=== PATIENT | male | born 1985 | race Caucasian/White ===

== ENCOUNTER 2016-11-28 13:47 | Emergency (ER) | payer MEDICAID ==
[~2016-11-28 13:47] MED LIST: Pantoprazole 40 MG Tab.CR ONE
--- NOTE | 2016-11-28 14:20 | EDM.PDOC ---
ED HPI GENERAL MEDICAL PROBLEM - General Chief Complaint: General Stated Complaint: ABDOMINAL PAIN Time Seen by Provider: 11/28/16 13:55 Source of Information: Reports: Patient History Limitations: Reports: No Limitations - History of Present Illness INITIAL COMMENTS - FREE TEXT/NARRATIVE: Pt claims that he ate turkey sandwich last night and went to bed, he woke up with vague abdominal pain in the epigastric region of the abdomen and slightly to the right. Pain is more of cramps which come and go, did get sharp and felt nauseous. Rates pain at worse around 6/10. No vomiting. No fever or chills. No abdominal bloating. He has been belching and burping all day today. Has had one slightly loose stools. Otherwise he feels fine. Onset: Today Onset Date: 11/28/16 Onset Time: 07:00 Location: Reports: Abdomen Quality: Reports: Ache Severity: Mild Associated Symptoms: Denies: Confusion, Cough, Diaphoresis, Fever/Chills, Headaches, Loss of Appetite, Nausea/Vomiting, Rash, Shortness of Breath, Weakness - Related Data Allergies Allergy/AdvReac Type Severity Reaction Status Date / Time Penicillins Allergy Hives Verified 11/28/16 14:07 Sulfa (Sulfonamide Allergy Hives Verified 11/28/16 14:07 Antibiotics) Home Meds: Home Meds NK [No Known Home Meds] 11/28/16 [History] ED ROS GENERAL - Review of Systems Review Of Systems: See Below Constitutional: Denies: Fever, Chills HEENT: Denies: Rhinitis, Sinus Problem, Throat Pain, Throat Swelling Respiratory: Denies: Shortness of Breath, Cough, Sputum Cardiovascular: Denies: Chest Pain, Lightheadedness GI/Abdominal: Reports: Abdominal Pain, Diarrhea, Flatus, Nausea. Denies: Black Stool, Decreased Appetite, Difficulty Swallowing, Distension, Hematemesis, Hematochezia, Vomiting : Denies: Flank Pain, Frequency Musculoskeletal: Denies: Joint Pain, Joint Swelling Skin: Denies: Pruritis, Rash Neurological: Denies: Dizziness, Headache ED EXAM, GENERAL - Physical Exam Exam: See Below Exam Limited By: No Limitations General Appearance: Alert, WD/WN, No Apparent Distress, Other (Pt is very comfortable, not in any distress or discomfort in the emergency room) Eye Exam: Bilateral Eye: EOMI, PERRL Ears: Normal External Exam, Normal Canal, Hearing Grossly Normal, Normal TMs Ear Exam: Bilateral Ear: TM normal Nose: Normal Inspection, Normal Mucosa, No Blood Throat/Mouth: Normal Inspection, Normal Lips, Normal Teeth, Normal Gums, Normal Oropharynx, Normal Voice, No Airway Compromise Head: Atraumatic, Normocephalic Neck: Normal Inspection, Supple, Non-Tender, Full Range of Motion Respiratory/Chest: No Respiratory Distress, Lungs Clear, Normal Breath Sounds, No Accessory Muscle Use, Chest Non-Tender Cardiovascular: Normal Peripheral Pulses, Regular Rate, Rhythm, No Edema, No Gallop, No JVD, No Murmur, No Rub Peripheral Pulses: 2+: Radial (L), Radial (R) GI/Abdominal: Normal Bowel Sounds, Soft, No Organomegaly, No Distention, No Abnormal Bruit, No Mass, Pelvis Stable, Tender (mild epigastric discomfort). No : Guarding, Rigid, Rebound Course - Vital Signs Text/Narrative:: Pt's CBC is normal. There is no acute infection. His Liver and kidney functions are normal. His amylase and lipase are normal. He has epigastric pain with nausea. Appear more like dyspepsia. Will start him on protonix 40mg daily.for 2 wks. If symptoms not better advised to return to clinic for further workup. - Orders/Labs/Meds Labs: Laboratory Tests 11/28/16 11/28/16 Range/Units 14:31 14:31 WBC 7.7 (4.0-11.0) K/uL RBC 5.28 (4.50-6.50) M/uL Hgb 15.8 (13.0-18.0) g/dL Hct 44.8 (40.0-54.0) % MCV 85 (76-96) fL MCH 29.9 (27.0-32.0) pg MCHC 35.3 H (31.0-35.0) g/dL RDW 14.1 (11.0-16.0) % Plt Count 208 (150-400) K/uL MPV 10.3 H (6.0-10.0) fL Neut % (Auto) 65.7 (45.0-70.0) % Lymph % (Auto) 25.4 (20.0-40.0) % Carroll % (Auto) 7.3 (3.0-10.0) % Eos % (Auto) 1.3 (1.0-5.0) % Baso % (Auto) 0.3 (0.0-0.5) % Neut # (Auto) 5.08 (2.00-7.50) K/uL Lymph # (Auto) 1.96 (1.50-4.00) K/uL Carroll # (Auto) 0.56 (0.20-0.80) K/uL Eos # (Auto) 0.10 (0.04-0.40) K/uL Baso # (Auto) 0.02 (0.02-0.10) K/uL Sodium 138 (136-145) mmol/L Potassium 4.6 (3.5-5.1) mmol/L Chloride 104 (98-107) mmol/L Carbon Dioxide 30.2 (21.0-32.0) mmol/L Anion Gap 8.4 (5.0-15.0) mmol/L BUN 8 (8-26) mg/dL Creatinine 0.97 (0.70-1.30) mg/dL Est Cr Clr Drug Dosing TNP Estimated GFR (MDRD) > 60 (>60) MLS/MIN BUN/Creatinine Ratio 8.2 (6-25) Glucose 94 (74-100) mg/dL Calcium 9.3 (8.5-10.1) mg/dL Total Bilirubin 0.5 (0.0-1.0) mg/dL AST 18 (15-37) U/L ALT 28 (12-78) U/L Alkaline Phosphatase 75 (46-116) U/L Total Protein 7.5 (6.4-8.2) g/dL Albumin 4.0 (3.4-5.0) g/dL Globulin 3.5 (2.2-4.2) g/dL Albumin/Globulin Ratio 1.1 (0.8-2.0) Amylase 49 (25-115) U/L Lipase 142 (73-393) U/L Departure - Departure Time of Disposition: 15:20 Disposition: Home, Self-Care 01 Condition: fair Clinical Impression: Dyspepsia - Discharge Information Forms: ED Department Discharge Additional Instructions: Pt's CBC is normal. There is no acute infection. His Liver and kidney functions are normal. His amylase and lipase are normal. He has epigastric pain with nausea. GI cocktail did help some with symptoms Appear more like dyspepsia. Will start him on protonix 40mg daily.for 2 wks. If symptoms not better advised to return to clinic for further workup. - Problem List & Annotations (1) Dyspepsia SNOMED Code(s): 560058238 Code(s): R10.13 - EPIGASTRIC PAIN Status: Acute Current Visit: Yes - Problem List Review Problem List Initiated/Reviewed/Updated: Yes - Assessment/Plan Assessment:: Dyspepsia Plan: Pt's CBC is normal. There is no acute infection. His Liver and kidney functions are normal. His amylase and lipase are normal. He has epigastric pain with nausea. GI cocktail did help some with symptoms Appear more like dyspepsia. Will start him on protonix 40mg daily.for 2 wks. If symptoms not better advised to return to clinic for further workup.
[2016-11-28] MEDS ORDERED: Pantoprazole 40 MG Tab.CR ONE (15:23)
[2016-11-28 18:35] VITALS: BP 146/99
== END 2016-11-28 15:40 | disposition home or self-care (01) ==
LOC: LB.ED 13:47
DX: R10.13 Epigastric pain (principal); Z88.0 Allergy status to penicillin; Z88.2 Allergy status to sulfonamides
CPT/HCPCS: 36415; 80053; 82150; 83690; 85025; 99284; A9270